=== PATIENT | female | born 2000 | race Caucasian/White ===

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

== ENCOUNTER 2020-01-07 03:04 | Emergency (ER) | payer MEDICAID ==
[~2020-01-07] VITALS: Ht 157.5 cm; Wt 63.6 kg
[~2020-01-07 03:04] MED LIST changes: +IBU600 MG PO
[2020-01-07 04:11] LABS: BASO # 0.1 (0.0-0.2); BASO % 0.7 % (0.0-2.0); EOS # 0.1 (0.0-0.7); EOS % 1.2 % (0-4.0); GRAN % 69.2 % (42.2-75.2); HEMATOCRIT 38.9 % (35.0-45.0); HEMOGLOBIN 13.2 g/dl (12.0-15.0); LYMPH # 1.5 (1.2-3.4); LYMPH % 21.1 % (20.0-51.0); MEAN CELL VOLUME 89 fl (80.0-95.0); MEAN CORPUSCULAR HEMOGLOBIN 30 pg (26.0-32.0); MEAN CORPUSCULAR HGB CONC 34 g/dl (33.0-37.0); MEAN PLATELET VOLUME 11.3 fl (7.4-10.4); MONO # 0.5 (0.1-0.6); MONO % 7.5 % (1.7-9.3); PLATELET COUNT 227 K/mm3 (130-400); RED BLOOD COUNT 4.37 M/mm3 (4.10-5.30)
[2020-01-07 04:20] LABS: ALBUMIN 4.6 gm/dL (3.5-5.0); BILIRUBIN,TOTAL 0.4 mg/dL (0.0-1.0); CALCIUM 9.8 mg/dL (8.4-10.2); CREATININE, serum 0.55 (0.52-1.25); POTASSIUM 3.6 mmol/L (3.4-5.0)
[2020-01-07 04:36] LABS: STREP SCREEN NEGATIVE
[2020-01-07 05:37] VITALS: BP 124/76; PULSE 67; TEMP 97.6
[2020-01-07] MEDS ORDERED: PEPCID 20MG TAB20 MG PO (05:54)
== END 2020-01-07 06:08 | disposition home or self-care (01) ==
LOC: COL.ER 03:04
PROVIDERS: Emergency Medicine
DX: R06.02 Shortness of breath (principal); R07.89 Other chest pain; J02.9 Acute pharyngitis, unspecified

== ENCOUNTER 2021-04-20 01:10 | Emergency (ER) | payer MEDICAID ==
[2021-04-20 01:36] VITALS: TEMP 98.6
[2021-04-20 02:40] VITALS: BP 103/70; PULSE 89
== END 2021-04-20 02:40 | disposition home or self-care (01) ==
LOC: COL.ER 01:10
DX: M25.561 Pain in right knee (principal); Z32.02 Encounter for pregnancy test, result negative
CPT/HCPCS: J1885

== ENCOUNTER → 2021-04-20 | Outpatient (CLI) | payer MEDICAID ==
[~2021-04-20] MED LIST changes: +PEPCID 20MG TAB20 MG PO
== END ==
LOC: COL.VAS 08:25 → COL.ER 08:25 → COL.VAS 08:25 → EDSTATUS 08:41 → COL.VAS 08:47
DX: M25.561 Pain in right knee (principal)

== ENCOUNTER 2021-07-13 15:00 | Emergency (ER) | payer MEDICAID ==
[~2021-07-13] VITALS: Ht 157.5 cm; Wt 57.3 kg
[2021-07-13 15:19] VITALS: TEMP 97.9
[2021-07-13 17:45] VITALS: BP 150/67; PULSE 74
== END 2021-07-13 17:45 | disposition home or self-care (01) ==
LOC: COL.ER 15:00
DX: O9A.211 Injury, poisoning and certain other consequences of external causes complicating pregnancy, first trimester (principal); S00.03XA Contusion of scalp, initial encounter; S00.83XA Contusion of other part of head, initial encounter; S80.01XA Contusion of right knee, initial encounter; Z3A.10 10 weeks gestation of pregnancy; W01.198A Fall on same level from slipping, tripping and stumbling with subsequent striking against other object, initial encounter; Y93.01 Activity, walking, marching and hiking; Y92.480 Sidewalk as the place of occurrence of the external cause

== ENCOUNTER 2021-07-18 20:24 | Emergency (ER) | payer MEDICAID ==
[~2021-07-18] VITALS: Ht 157.5 cm; Wt 57.3 kg
[2021-07-18 20:32] VITALS: TEMP 97.4
[2021-07-18 22:22] LABS: BASO % 0.4 % (0.0-2.0); EOS % 0.3 % (0.0-4.0); GRAN # 5.8 K/mm3 (1.4-6.5); GRAN % 77.7 % (42.2-75.2); HEMATOCRIT 43.4 % (35.0-45.0); LYMPH # 1.2 K/mm3 (1.2-3.4); MEAN CELL VOLUME 90 fl (80.0-95.0); MEAN CORPUSCULAR HEMOGLOBIN 31 pg (26-32); MEAN CORPUSCULAR HGB CONC 35 g/dl (33.0-37.0); MEAN PLATELET VOLUME 11.9 fl (7.4-10.4); MONO # 0.4 K/mm3 (0.1-0.6); MONO % 5.3 % (1.7-9.3); PLATELET COUNT 185 K/mm3 (130-400); RED BLOOD COUNT 4.84 M/mm3 (4.10-5.30); REDCELL DISTRIBUTION WIDTH-CV 12.6 % (11.5-14.5)
[2021-07-18 22:43] LABS: ALBUMIN 4.6 gm/dL (3.5-5.0); BILIRUBIN,TOTAL 0.5 mg/dL (0.2-1.2); CALCIUM 9.8 mg/dL (8.4-10.2); CREATININE, serum 0.68 mg/dL (0.57-1.11); POTASSIUM 4.2 mmol/L (3.5-4.5); TOTAL PROTEIN 8.8 gm/dL (6.2-8.1)
[2021-07-19 00:19] VITALS: BP 144/78; PULSE 76
== END 2021-07-19 00:19 | disposition home or self-care (01) ==
LOC: COL.ER 20:24
PROVIDERS: Emergency Medicine
DX: O36.80X0 Pregnancy with inconclusive fetal viability, not applicable or unspecified (principal); Z3A.11 11 weeks gestation of pregnancy
CPT/HCPCS: J7120

== ENCOUNTER 2021-10-27 00:13 | Emergency (ER) | payer MEDICAID ==
[~2021-10-27] VITALS: Ht 157.5 cm; Wt 56.8 kg
[2021-10-27 00:14] VITALS: TEMP 98.4
[2021-10-27 01:06] LABS: COLLECTION METHOD CLEAN CATCH
[2021-10-27 01:12] LABS: BASO % 0.2 % (0.0-2.0); EOS % 0.5 % (0.0-4.0); GRAN % 73.4 % (42.2-75.2); HEMOGLOBIN 11.6 g/dl (12.5-16.0); LYMPH # 1.4 K/mm3 (1.2-3.4); LYMPH % 17.7 % (20.0-51.0); MEAN CELL VOLUME 93 fl (80.0-100.0); MEAN CORPUSCULAR HEMOGLOBIN 31 pg (27-31); MEAN CORPUSCULAR HGB CONC 34 g/dl (33.0-37.0); MEAN PLATELET VOLUME 11.8 fl (7.4-10.4); MONO # 0.6 K/mm3 (0.1-0.6); MONO % 7.7 % (1.7-9.3); PLATELET COUNT 149 K/mm3 (130-400); RED BLOOD COUNT 3.72 M/mm3 (4.10-5.30); REDCELL DISTRIBUTION WIDTH-CV 13.3 % (11.5-14.5)
[2021-10-27 01:30] LABS: ALBUMIN 3.1 gm/dL (3.5-5.0); BILIRUBIN,TOTAL 0.2 mg/dL (0.2-1.2); CALCIUM 9.2 mg/dL (8.4-10.2); CREATININE, serum 0.54 mg/dL (0.57-1.11); POTASSIUM 3.6 mmol/L (3.5-4.5); TOTAL PROTEIN 6.9 gm/dL (6.2-8.1)
[2021-10-27 01:33] LABS: AMORPHOUS CRYSTAL Present (NOT PRESENT); MUCOUS Present (NOT PRESENT); PH 7 (5-8); URINE APPEARANCE Cloudy (CLEAR/HAZY); URINE BACTERIA Rare /hpf (NONE SEEN); URINE BLOOD Negative (NEGATIVE); URINE COLOR Yellow (YELLOW); URINE GLUCOSE Negative (NEGATIVE); URINE KETONE Negative (NEGATIVE); URINE NITRATE Negative (NEGATIVE); URINE PROTEIN(semi-quant) Negative (NEGATIVE); URINE UROBILINOGEN Negative (NEGATIVE)
[2021-10-27 01:34] LABS: HEMATOCRIT 34.5 % (37.0-47.0)
[2021-10-27] MEDS ORDERED: ZESTRIL 20MG TA20 MG PO ×2 (01:55)
[2021-10-27 02:39] VITALS: BP 110/61; PULSE 88
== END 2021-10-27 02:40 | disposition home or self-care (01) ==
LOC: COL.ER 00:13
PROVIDERS: Nurse Practitioner Family
DX: O99.891 Other specified diseases and conditions complicating pregnancy (principal); M54.50 Low back pain, unspecified; M25.551 Pain in right hip; Z28.310 Unvaccinated for COVID-19; Z3A.00 Weeks of gestation of pregnancy not specified
CPT/HCPCS: J7030

== ENCOUNTER 2021-12-13 00:44 | Outpatient (CLI) | payer MEDICAID ==
[~2021-12-13] VITALS: Ht 157.5 cm; Wt 61.4 kg
--- NOTE | 2021-12-13 | NUR ---
G2L1 at 27 weeks arrives to unit by EMS with complaint of rib pain. Pt reports pain is constant and sharp, has not tried to take any medication or do any interventions for the pain. Pt denies contractions, vaginal bleeding, or leakage of fluid. Positive movement. US and toco explained and applied. Admission assessment started. Vitals obtained. No SVE due to patient being 27 weeks with no obstetric complaints.
[2021-12-13 00:30] VITALS: BP 116/60; PULSE 85
--- NOTE | 2021-12-13 00:30 | NUR ---
Dr. Lance on unit, reviewing heart rate tracing, states this is not an obstetrical problem and patient can be discharged from OB to be evaluated in the ER.
[~2021-12-13 00:44] MED LIST changes: +ZESTRIL 20MG TA20 MG PO
--- NOTE | 2021-12-13 01:15 | NUR ---
Discharge instructions reviewed with patient. All questions answered. Pt transferred to ED admissions by staff in wheelchair.
== END 2021-12-13 01:15 | disposition home or self-care (01) ==
LOC: LDRO 00:44
DX: O26.892 Other specified pregnancy related conditions, second trimester (principal); R07.81 Pleurodynia; Z3A.27 27 weeks gestation of pregnancy

== ENCOUNTER 2021-12-13 01:13 | Emergency (ER) | payer MEDICAID ==
[~2021-12-13] VITALS: Ht 157.5 cm; Wt 65.9 kg
[2021-12-13 01:18] VITALS: TEMP 97
[2021-12-13 01:53] LABS: BASO % 0.3 % (0.0-2.0); EOS % 0.7 % (0.0-4.0); GRAN # 4.3 K/mm3 (1.4-6.5); GRAN % 69.6 % (42.2-75.2); HEMATOCRIT 30.2 % (37.0-47.0); HEMOGLOBIN 10.2 g/dl (12.5-16.0); LYMPH # 1.3 K/mm3 (1.2-3.4); LYMPH % 21.6 % (20.0-51.0); MEAN CELL VOLUME 90 fl (80.0-100.0); MEAN CORPUSCULAR HEMOGLOBIN 30 pg (27-31); MEAN CORPUSCULAR HGB CONC 34 g/dl (33.0-37.0); MEAN PLATELET VOLUME 12.2 fl (7.4-10.4); MONO # 0.5 K/mm3 (0.1-0.6); MONO % 7.6 % (1.7-9.3); PLATELET COUNT 119 K/mm3 (130-400); RED BLOOD COUNT 3.35 M/mm3 (4.10-5.30); REDCELL DISTRIBUTION WIDTH-CV 13.4 % (11.5-14.5)
[2021-12-13 02:05] LABS: COLLECTION METHOD CLEAN CATCH
[2021-12-13 02:06] LABS: ALBUMIN 2.7 gm/dL (3.5-5.0); BILIRUBIN,DIRECT 0.1 mg/dL (0.0-0.5); BILIRUBIN,TOTAL 0.2 mg/dL (0.2-1.2); CALCIUM 8.5 mg/dL (8.4-10.2); CREATININE, serum 0.58 mg/dL (0.57-1.11); POTASSIUM 3.5 mmol/L (3.5-4.5); TOTAL PROTEIN 6.1 gm/dL (6.2-8.1)
[2021-12-13 02:15] LABS: AMORPHOUS CRYSTAL Present (NOT PRESENT); PH 7.5 (5.0-8.5); URINE APPEARANCE Cloudy (CLEAR/HAZY); URINE BACTERIA Rare /hpf (NONE SEEN); URINE COLOR Yellow (YELLOW); URINE GLUCOSE Negative (NEGATIVE); URINE KETONE Negative (NEGATIVE); URINE PROTEIN(semi-quant) Negative (NEGATIVE)
[2021-12-13 02:16] LABS: URINE BLOOD Negative (NEGATIVE); URINE NITRATE Negative (NEGATIVE)
[2021-12-13 03:00] VITALS: BP 96/68; PULSE 82
== END 2021-12-13 03:07 | disposition home or self-care (01) ==
LOC: COL.ER 01:13
PROVIDERS: Emergency Medicine
DX: O26.892 Other specified pregnancy related conditions, second trimester (principal); R10.11 Right upper quadrant pain; Z28.310 Unvaccinated for COVID-19; Z3A.27 27 weeks gestation of pregnancy
CPT/HCPCS: J2765

== ENCOUNTER → 2021-12-18 | Outpatient (CLI) | payer MEDICAID | LOC: COL.RAD 08:12 | DX: R10.11 Right upper quadrant pain (principal) ==